=== PATIENT | female | born 1965 | race Caucasian/White ===

== ENCOUNTER 2017-06-30 22:14 | Emergency (ER) | payer OTHER ==
[~2017-06-30] VITALS: Ht 167.6 cm; Wt 106.6 kg
--- NOTE | ~2017-06-30 | EKG ---
[address] [address] ELECTROCARDIOGRAM REPORT Name: CHRISTIAN MADDEN Room #: [facility]#: [id number] Admission: 06/30/17 Attend Phys: Discharge: 07/01/17 Date of : 61 Report #: [id number] THIS REPORT FOR: //name// [facility] ED Test Date: 2017-06-30 Test Time: 22:30:08 Pat Name: CHRISTIAN MADDEN Department: Room: Gender: F Offset Printing Operator: JOSEP Paredes : 1965 Requested By: Jitendra Bravo Order Number: [id number] MD: Lavell Dejesus Measurements Intervals [place] Rate: 71 P: -10 WI: 125 QRS: 31 QRSD: 106 T: 81 QT: 446 QTc: 485 Interpretive Statements Sinus rhythm Low voltage, precordial leads Nonspecific T abnrm, anterolateral leads Compared to ECG 01/18/2007 12:36:29 Low QRS voltage now present T-wave abnormality no longer present Poor R-wave progression no longer present Electronically Signed On 07-01-2017 10:45:18 BUSINESS PROCESS COORDINATOR by Lavell Dejesus [email or web address] <ELECTRONICALLY SIGNED> By: Lavell Dejesus MD 07/01/17 1045 2230 Lavell Dejesus MD /EPI
[~2017-06-30 22:14] MED LIST: BUTALB-APAP-CA1 EACH PO; COZAAR 25 MG TA25 M1 PO; LYRICA 50 MG50 MG PO; PHENERGAN 25 MG25 M1 PO; PHENERGAN50 MG RC
[2017-06-30 23:09] LABS: ABSOLUTE NEUTROPHILS 8.3 thou/uL (1.4-8.2); BASOPHILS 0.8 % (0.0-2.0); EOSINOPHILS 1.3 % (0.0-3.0); HEMATOCRIT 42.5 % (37.0-47.0); HEMOGLOBIN 14.2 gm/dL (12.0-15.0); LYMPHOCYTES 17.6 % (24.0-44.0); MCH 29.7 pg (26.0-34.0); MCHC 33.3 g/dL (28.0-37.0); MCV 89.3 fL (80.0-100.0); MONOCYTES 7.1 % (1.0-8.0); PLATELET COUNT 167 thou/uL (150-400); POLYS 73.2 % (36.0-66.0); RBC 4.76 mil/uL (4.20-5.00); RDW 14.3 % (10.5-14.5); WBC 11.3 thou/uL (4.0-11.0)
[2017-06-30 23:16] LABS: ANION GAP 13 mmol/L (7-16); BUN 14 mg/dL (7-18); CALCIUM 8.4 mg/dL (8.5-10.1); CHLORIDE 103 mmol/L (98-107); CO2 25 mmol/L (21-32); CREATININE 1.3 mg/dL (0.6-1.0); GLUCOSE 128 mg/dL (74-106); POTASSIUM 3.4 mmol/L (3.5-5.1); SODIUM 141 mmol/L (136-145)
[2017-06-30 23:25] LABS: TROPONIN-I < 0.04 ng/mL (<0.06)
[2017-06-30] MEDS ORDERED: PHENERGAN 25 MG25 M1 PO (23:43)
[2017-06-30] MEDS ORDERED: BENTYL 20 MG TA20 M1 PO (23:43)
[2017-06-30] MEDS ORDERED: LOPERAMIDE 2 MG2 M1 PO (23:43)
[2017-07-01 00:03] VITALS: BP 95/58
== END 2017-07-01 00:24 | disposition home or self-care (01) ==
LOC: ER 22:14
PROVIDERS: Emergency Medicine
DX: G43.109 Migraine with aura, not intractable, without status migrainosus (principal); K52.9 Noninfective gastroenteritis and colitis, unspecified; E87.6 Hypokalemia; Z88.8 Allergy status to other drugs, medicaments and biological substances; I10 Essential (primary) hypertension; M54.30 Sciatica, unspecified side